=== PATIENT | male | born 1935 | race Caucasian/White ===

== ENCOUNTER 2016-04-25 08:55 | Outpatient (CLI) | payer MEDICARE ==
[2016-04-25 12:30] LABS: Anion Gap 12 mmol/L (10-20); BUN (Urea Nitrogen) 16 mg/dL (8.4-25.7); Calc. Creatinine Clearance 0 mL/min (70-130); Calcium 9.2 mg/dL (7.8-10.44); Carbon Dioxide 22 mmol/L (23-31); Chloride 109 mmol/L (98-107); Estimated GFR-MDRD 73; LDL Cholesterol, Calculated 79 mg/dL
[2016-04-25 12:51] LABS: Hemoglobin A1c 5.9 % (4.0-6.0)
== END 2016-04-25 08:56 ==
LOC: NAVSJIPCSP 08:55
PROVIDERS: ATTEND Internal Medicine
DX: E78.5 Hyperlipidemia, unspecified (principal); E11.51 Type 2 diabetes mellitus with diabetic peripheral angiopathy without gangrene; I11.9 Hypertensive heart disease without heart failure; Z79.899 Other long term (current) drug therapy
CPT/HCPCS: 36415; 80048; 80061; 83036

== ENCOUNTER 2016-10-22 09:37 | Outpatient (CLI) | payer MEDICARE ==
[2016-10-22 12:07] LABS: Hemoglobin A1c 5.9 % (4.0-6.0)
[2016-10-22 12:31] LABS: Cardiac Risk 3.6 (Less than 4.5)
== END 2016-10-22 09:38 | disposition home or self-care (01) ==
LOC: NAVSJIPCSP 09:37
PROVIDERS: ATTEND Internal Medicine
DX: E78.5 Hyperlipidemia, unspecified (principal); E11.51 Type 2 diabetes mellitus with diabetic peripheral angiopathy without gangrene; Z79.899 Other long term (current) drug therapy
CPT/HCPCS: 36415; 80061; 83036

== ENCOUNTER 2021-01-26 10:59 | Outpatient (CLI) | payer MEDICARE | END 2021-01-26 11:00 | disposition home or self-care (01) | LOC: NAV RAD 10:59 | PROVIDERS: ATTEND Internal Medicine | DX: M25.562 Pain in left knee (principal) ==